=== PATIENT | female | born 1950 | race African-American/Black ===

== ENCOUNTER 2023-02-22 21:17 | Emergency (ER) | payer MEDICARE, BC ==
[2023-02-22 22:18] LABS: INR-International Normal Ratio 2.4; Prothrombin Time 27.6 sec (12.0-14.7)
[2023-02-22 22:19] LABS: PTT 38.6 sec (22.9-36.1)
[2023-02-22 22:21] LABS: D-Dimer Test 0.27 *mcg/mL (0.27-0.43)
[2023-02-22 22:23] LABS: #Eosinphils 0.2 thou/uL (0.0-0.7); #Lymphocytes 1.2 thou/uL (1.20-3.40); #Monocytes 0.6 thou/uL (0.11-0.59); #Neutrophils 6.1 thou/uL (1.40-6.50); %Basophils 0.5 % (0.0-1.0); %Eosinophils 2.4 % (0.0-10.0); %Lymphocytes 15.2 % (21.0-51.0); %Neutrophils 74.9 % (42.0-75.0); ALT (SGPT) 16 U/L (8-55); AST (SGOT) 27 U/L (5-34); Albumin 3.9 g/dL (3.4-4.8); Alkaline Phosphatase 39 U/L (40-110); Anion Gap 18 mmol/L (10-20); Anisocytosis SLIGHT = 6-15 cells (100X) (0-5/hpf); BUN (Urea Nitrogen) 17 mg/dL (9.8-20.1); Bilirubin, Total 0.6 mg/dL (0.2-1.2); Calc. Creatinine Clearance 0 mL/min (70-130); Calcium 9.2 mg/dL (7.8-10.44); Carbon Dioxide 23 mmol/L (23-31); Chloride 104 mmol/L (98-107); Estimated GFR 54; Globulin 1.6 g/dL (2.4-3.5); Glucose 138 mg/dL (83-110); MDiff Complete? YES; Magnesium 1.9 mg/dL (1.6-2.6); Mean Corpuscular HGB CONC 30.2 g/dL (32.0-36.0); Mean Corpuscular Hemoglobin 21.3 pg (27.0-31.0); Mean Corpuscular Volume 70.7 fl (78.0-98.0); Mean Platelet Volume 13.3 fL (7.4-10.4); Ovalocytes SLIGHT = 2-5 cells (100X) (0-1/hpf); Platelet Count 139 10x3/uL (130-400); Platelet Morphology Comment Appears Adequate; Potassium 4.7 mmol/L (3.5-5.1); Protein, Total 5.5 g/dL (5.8-8.1); Red Blood Cell (RBC) Count 6.57 mill/uL (4.20-5.40); Sodium 140 mmol/L (136-145); White Blood Cell (WBC) Count 8.1 10x3/uL (4.8-10.8)
[2023-02-22] MEDS ORDERED: cloNIDine 0.1 MG TAB ONE (22:25)
[2023-02-23 00:18] LABS: Bilirubin Negative (Negative); Blood, Urine Small (Negative); Glucose, Urine (Dipstick) Negative (Negative); Ketone, Urine Negative (Negative); Leukocyte Small (Negative); Nitrite Negative (Negative); Protein, Urine (Dipstick) 30 mg/dL (Neg-Trace); Urobilinogen 0.2 mg/dL (Less than 2)
[2023-02-23 00:20] LABS: Clarity Hazy (Clear)
[2023-02-23 00:21] LABS: Bacteria/HPF Rare-Few HPF (None Seen); RBC/HPF 0-3 HPF (0-3); Squamous Epithelial 0-3 HPF (0-3); WBC/HPF 21-50 HPF (0-3)
[2023-02-23] MEDS ORDERED: Cephalexin 500 MG CAP ONE (00:49)
== END 2023-02-23 00:53 | disposition home or self-care (01) ==
LOC: MADERS 21:17
DX: N39.0 Urinary tract infection, site not specified (principal); R93.89 Abnormal findings on diagnostic imaging of other specified body structures; E11.9 Type 2 diabetes mellitus without complications; E78.5 Hyperlipidemia, unspecified; I10 Essential (primary) hypertension; Z79.84 Long term (current) use of oral hypoglycemic drugs
CPT/HCPCS: 71045; 71260; 80053; 80162; 81003; 81015; 83605; 83735; 84484; 85025; 85379; 85610; 85730; 93005; 94760